=== PATIENT | female | born 2000 | race Two or more races ===

== ENCOUNTER 2025-09-16 10:13 | Emergency (ER) | payer OTHER ==
[~2025-09-16] VITALS: Ht 167.6 cm; Wt 68.0 kg
[2025-09-16] MEDS ORDERED: 0.9 % SODIUM CHLORIDE 1,000 ML IV ONE (11:15)
[2025-09-16 11:45] LABS: BASO % 0.3 % (0.1-1.2); EOS # 0.06 (0.04-0.54); EOS % 0.4 % (0.7-7.0); LYMPH # 2.12 (1.18-3.74); LYMPH % 13.8 % (19.3-53.1); MEAN PLATELET VOLUME 10.20 fl (9.4-12.4); MONO # 0.92 (0.24-0.82); MONO % 6.0 % (4.7-12.5); NEUT # 12.10 (1.56-6.13); NEUT % 78.9 % (34.0-71.1); RED CELL DISTRIBUTION WIDTH 12.9 % (11.6-14.4)
[2025-09-16 13:00] LABS: ALT/SGPT 32 U/L (12-78); AST/SGOT 15 U/L (15-37); BILIRUBIN TOTAL 0.61 mg/dL (0.3-1.2); BUN CREA RATIO 23 (7.0-25.0); CREATININE SERUM 0.74 mg/dL (0.55-1.02); GFR 95.62; GLOBULINA 3.0 G/DL (2.4-3.5); GLUCOSE FASTING 106 mg/dL (65-100); OSMOLALITY SERUM 287 MOSM/KG (275-295)
[2025-09-16 13:02] LABS: HCG QUANTITATIVE < 1 mUI/mL (1-3)
[2025-09-16 13:15] LABS: COVID-19 AG NEGATIVE (NEGATIVE)
[2025-09-16] MEDS ORDERED: CEFTRIAXONE SODIUM 1,000 MG VIAL IV ONE (13:30)
[2025-09-16 16:59] LABS: URINE APPEARANCE Clear; URINE BILIRRUBIN Negative (NEGATIVE); URINE BLOOD Large; URINE COLOR Yellow; URINE GLUCOSE Negative (NEGATIVE); URINE KETONE Negative (NEGATIVE); URINE LEUKOCYTE Negative; URINE NITRATE Negative; URINE PROTEIN Negative (NEGATIVE); URINE UROBILINOGEN 0.2 E.U./dl
[2025-09-16 17:03] LABS: URINE BACTERIA 370.7 uL (0.0-1933); URINE EPITHELIAL CELLS 11.2 uL (0.0-38.8); URINE RBC 932.4 uL (0.0-20.8); URINE WBC 8.6 uL (0.0-23.2)
[2025-09-16] MEDS ORDERED: 0.9 % SODIUM CHLORIDE 1,000 ML IV SCH (17:15)
[2025-09-16 17:17] LABS: URINE CAST 0.00 uL (0.0-1.40)
[2025-09-16 17:35] LABS: BASO % 0.3 % (0.1-1.2); EOS # 0.08 (0.04-0.54); EOS % 0.7 % (0.7-7.0); LYMPH # 3.78 (1.18-3.74); LYMPH % 31.9 % (19.3-53.1); MEAN PLATELET VOLUME 10.10 fl (9.4-12.4); MONO # 0.85 (0.24-0.82); MONO % 7.2 % (4.7-12.5); NEUT # 7.06 (1.56-6.13); NEUT % 59.6 % (34.0-71.1); RED CELL DISTRIBUTION WIDTH 13.0 % (11.6-14.4)
== END 2025-09-16 19:53 | disposition home or self-care (01) ==
LOC: ER 10:13
PROVIDERS: General Practice
DX: R55 Syncope and collapse (principal); R42 Dizziness and giddiness; E03.8 Other specified hypothyroidism; Z20.822 Contact with and (suspected) exposure to COVID-19